=== PATIENT | female | born 1955 | race Caucasian/White ===

== ENCOUNTER 2018-05-18 13:53 | Outpatient (CLI) | payer BC ==
[~2018-05-18] VITALS: Ht 165.1 cm; Wt 78.9 kg
[~2018-05-18 13:53] MED LIST changes: -LEVO50TA PO; -MELO15TA14 PO; -MULT-35 PO; -SPIR50TA PO; -TRAM-42 PO; -VENL75CA PO
[2018-05-18] MEDS ORDERED: SPIR50TA PO (14:19)
[2018-05-18] MEDS ORDERED: MULT-35 PO (14:19)
[2018-05-18] MEDS ORDERED: LEVO50TA PO (14:19)
[2018-05-18] MEDS ORDERED: VENL75CA PO (14:19)
[2018-05-18] MEDS ORDERED: MELO15TA14 PO (14:19)
[2018-05-19] MEDS ORDERED: TRAM-42 PO (10:31)
== END 2018-05-18 14:24 ==
LOC: PREOP 13:53
PROVIDERS: ATTEND Surgery
DX: Z01.818 Encounter for other preprocedural examination (principal)

== ENCOUNTER → 2018-05-18 | Outpatient (CLI) | payer BC ==
[~2018-05-18] MED LIST: ACHD5005 PO; BIEST TD; CALC-656 PO; CLD600T PO; CYAN10007 PO; E400C PO; IBP600T1 PO; LEVO50TA PO; LVT.05T PO; MELO15TA14 PO; MELO7.5T PO; MULT-35 PO; MULT-608 PO; MULT1TAB63 PO; MV,C200T3 PO; NF-VITB12 PO; OXYC1TAB87 PO; SPIR50TA PO; SPRN25T PO; TRAM-42 PO; VENL75CA PO; VITA-198 PO; VNL75T PO
--- NOTE | 2018-05-18 10:08 | Diagnostic Imaging Report ---
PROCEDURE: US abdomen complete. TECHNIQUE: Multiple real-time grayscale images were obtained over the abdomen in various projections. INDICATION: Abdominal pain. The pancreas is unremarkable. The liver is normal in size. No discrete liver mass is identified. The main portal vein is patent and shows normal direction of flow. The gallbladder appears to be stone filled. This does limit evaluation of the gallbladder wall. No pericholecystic fluid or biliary ductal dilatation is identified. The spleen is normal in size. Aorta and IVC are unremarkable. The right and left kidneys are unremarkable. There is no ascites. IMPRESSION: Stone filled gallbladder, limiting evaluation of the gallbladder wall. No other significant abnormality is detected. Dictated by: Dictated on workstation # [id number]
== END ==
LOC: RAD 08:18
PROVIDERS: ATTEND Internal Medicine
DX: K80.20 Calculus of gallbladder without cholecystitis without obstruction (principal)
CPT/HCPCS: 76700

== ENCOUNTER 2018-05-19 06:56 | Day surgery (SDC) | payer BC ==
[~2018-05-19] VITALS: Ht 165.1 cm; Wt 78.9 kg
[~2018-05-19 06:56] MED LIST changes: +LEVO50TA PO; +MELO15TA14 PO; +MULT-35 PO; +SPIR50TA PO; +VENL75CA PO
[2018-05-19 07:15] VITALS: BP 133/86
[2018-05-19] MEDS ORDERED: ROCURONIUM 10 MG/ML 5 ML SYRINGE IV ONE (07:26)
[2018-05-19] MEDS ORDERED: DEXAMETHASONE 10 MG/ML (DECADRON) 1 ML VIAL ONE (07:26)
[2018-05-19] MEDS ORDERED: ONDANSETRON 4 MG/2 ML (SDV) Z0FRAN ONE (07:26)
[2018-05-19] MEDS ORDERED: fentaNYL INJECTION 100 MCG/2 ML AMP ONE (07:26)
[2018-05-19] MEDS ORDERED: MIDAZOLAM 2 MG/2 ML (VERSED) VIAL ONE (07:26)
[2018-05-19] MEDS ORDERED: proPOfol 200 MG/20 ML (DIPRIVAN) VIAL IV ONE (07:26)
[2018-05-19] MEDS ORDERED: LIDOCAINE PF 2% 5 ML (XYLOCAINE) VIAL ONE (07:26)
[2018-05-19] MEDS ORDERED: ONDANSETRON 4 MG/2 ML (SDV) Z0FRAN IV ONE (07:30)
[2018-05-19] MEDS ORDERED: FAMOTIDINE 20MG/2ML IV (PEPCID) IV ONE (07:30)
[2018-05-19] MEDS ORDERED: SCOPOLAMINE 1.5 MG (TRANSDERM-SCOP) PATCH TOP ONE (07:30)
[2018-05-19] MEDS ORDERED: SEVOFLURANE (ULTANE) 15 ML INHAL SOLN ONE ×3 (07:33→10:21)
[2018-05-19] MEDS ORDERED: BUP/EPI 0.5% 1:200,000 (SENSORCAINE) 30 ML VIAL ONE (07:33)
[2018-05-19] MEDS: LACTATED RINGERS 1,000 ML IV PRN ×2 (07:40→09:31)
[2018-05-19 07:46] LABS: BASOPHILS % (AUTO) 1 % (0-10); EOSINOPHILS # (AUTO) 0.3 10^3/uL (0.0-0.3); EOSINOPHILS % (AUTO) 7 % (0-10); HEMATOCRIT 37 % (35-52); HEMOGLOBIN 12.7 G/DL (11.5-16.0); LYMPHOCYTES # (AUTO) 1.5 X 10^3 (1.0-4.0); LYMPHOCYTES % (AUTO) 29 % (12-44); MEAN CORPUSCULAR HEMOGLOBIN 30 PG (25-34); MEAN CORPUSCULAR HGB CONC 35 G/DL (32-36); MEAN CORPUSCULAR VOLUME 88 FL (80-99); MEAN PLATELET VOLUME 9.8 FL (7.4-10.4); MONOCYTES # (AUTO) 0.5 X 10^3 (0.0-1.0); MONOCYTES % (AUTO) 9 % (0-12); NEUTROPHILS # (AUTO) 2.9 X 10^3 (1.8-7.8); NEUTROPHILS % (AUTO) 55 % (42-75); PLATELET COUNT 229 10^3/uL (130-400); RED BLOOD COUNT 4.18 10^6/uL (4.35-5.85); RED CELL DISTRIBUTION WIDTH 13.1 % (10.0-14.5); WHITE BLOOD COUNT 5.3 10^3/uL (4.3-11.0)
[2018-05-19] MEDS ORDERED: CATHETER FLUSH 10 ML SYR IV PRN (08:00)
[2018-05-19] MEDS ORDERED: ceFAZolin INJECTION 1,000 MG in NS (IVPB) 50 ML IV ONE (08:00)
--- NOTE | 2018-05-19 08:06 | Progress Note-Pre Operative ---
Pre-Operative Progress Note H&P Reviewed The H&P was reviewed, patient examined and no changes noted. Date Seen by Provider: May 19, 2018 Time Seen by Provider: 07:55 Date H&P Reviewed: May 19, 2018 Time H&P Reviewed: 08:00 Pre-Operative Diagnosis: Chronic calculous cholecystitis, screening colonoscopy BART OTERO APRN May 19, 2018 8:06 am
[2018-05-19] MEDS ORDERED: morphine INJ 10 MG/ML 1ML (SYR OR VIAL) IVP PRN (08:15)
[2018-05-19] MEDS ORDERED: ACETAMINOPHEN 325 MG TABLET PO PRN (08:15)
[2018-05-19] MEDS ORDERED: ONDANSETRON 4 MG/2 ML (SDV) Z0FRAN IVP PRN ×2 (08:15→10:30)
[2018-05-19] MEDS ORDERED: HYDROcodone/APAP 5 MG/325 MG (LORTAB) TAB PO ONE (08:15)
[2018-05-19] MEDS ORDERED: PHENYLEPHRINE 100 MCG/ML 10 ML (ANESTHESIA) SYR ONE (09:28)
[2018-05-19] MEDS ORDERED: GLYCOPYRROLATE 0.2 MG/ML (ROBINUL) 2 ML VIAL ONE (10:06)
[2018-05-19] MEDS ORDERED: NEOSTIGMINE 1 MG/ML 5 ML SYRINGE ONE (10:06)
--- NOTE | 2018-05-19 10:29 | Progress Note-Post Operative ---
Post-Operative Progess Note Surgeon (s)/Pulverizer Tender (s) Surgeon PHANI COTTON MD Pulverizer Tender: asuncion ledezma MUSEUM GUIDE Pre-Operative Diagnosis Chronic calculous cholecystitis, screening colonoscopy Post-Operative Diagnosis same, normal colon and rectum. Procedure & Operative Findings Date of Procedure 05/19/18 Procedure Performed/Findings laparoscopic cholecystectomy, colonoscopy Anesthesia Type GET Estimated Blood Loss Estimated blood loss (mL): minimal Specimens/Packing Specimens Removed gallbladder PHANI COTTON MD May 19, 2018 10:29 am
[2018-05-19] MEDS ORDERED: MEPERIDINE (DEMEROL) INJ 50 MG/ML IVP PRN (10:30)
[2018-05-19] MEDS ORDERED: HYDROmorphone 1 MG/ML (DILAUDID) 1 ML SYRINGE IV PRN (10:30)
[2018-05-19] MEDS ORDERED: TRAM-42 PO (10:31)
[2018-05-19] MEDS: morphine INJ 10 MG/ML 1ML (SYR OR VIAL) IVP PRN ×2 (10:32→10:47)
[2018-05-19 11:25] VITALS: BP 143/81
[2018-05-19 11:26] VITALS: BP 143/81
--- NOTE | 2018-05-19 11:26 | OPERATIVE REPORT ---
DATE OF SERVICE: 05/19/2018 ATTENDING PRIMARY CARE PHYSICIAN: Suzi Chisholm DO. PREOPERATIVE DIAGNOSES: Chronic calculous cholecystitis, screening colonoscopy. POSTOPERATIVE DIAGNOSES: Multiple gallstones. Mild inflammation. Normal colon and rectum. PROCEDURES: Laparoscopic cholecystectomy and colonoscopy. SURGEON: Phani Strange MD. ACCOUNT DEVELOPMENT MANAGER: Dejon Moore APRN. ANESTHESIA: General endotracheal. ESTIMATED BLOOD LOSS: Minimal. FINDINGS: Dilated gallbladder with multiple stones. Colon and rectum were normal. No polyps or any neoplasms identified. DISPOSITION: The patient tolerated the procedure well. INDICATIONS FOR PROCEDURE: The patient is a 62-year-old female, who presented with discomfort in the right upper abdominal quadrant associated with nausea. This was initially mild; however, increased in severity. This would also become much more frequent. An ultrasound was performed, which showed multiple gallstones. She was also in need of a screening colonoscopy. Her last one was greater than 10 years ago. She states that she is otherwise doing well and is having normal bowel movements and does not report any major issues with diarrhea nor constipation as well as no red blood per rectum nor any dark tarry stools. DESCRIPTION OF PROCEDURE: The patient was brought to the operating room and laid supine on the table. After adequate IV pain and sedating medications and general endotracheal intubation, the abdomen was prepped and draped in standard surgical fashion. A 0.5% Marcaine with epinephrine was then used to incise the overlying skin in the left upper abdominal quadrant and a small transverse skin incision was made using a 15-blade. A 0 silk suture was applied to the medial aspect of the incision for retraction and a Veress needle was inserted with a low opening pressure of 0 mmHg and the abdomen was then insufflated to 15 mmHg pressure. The Veress needle removed and a 5 mm Xcel trocar placed followed by a 5 mm 45-degree angle laparoscope visualizing the peritoneal cavity. A 4-quadrant abdominal exploration was performed. There was a dilated gallbladder with identifiable stones on the outside of the gallbladder. There was mild chronic inflammation as well. The liver, omentum, small bowel appeared normal. Under direct visualization, we then proceeded to place a supraumbilical 10 mm port after the skin and peritoneal lining were anesthetized using 0.5% Marcaine with epinephrine and a transverse skin incision made using a 15-blade. In a similar manner, a right upper abdominal quadrant 5 mm port was placed. The patient was then placed in reverse Trendelenburg position as well as planed right side up, left side down. The fundus of the gallbladder was then retracted anteriorly and superiorly. The hepatoduodenal ligament was then opened using a hook instrument as well as blunt dissection. The entire critical view of safety was identified including the triangle of Calot as well as the cystic duct and artery as the only two structures going into the gallbladder as well as the cystic plate behind the proximal gallbladder. A timeout was then taken and the cystic duct and artery were then clipped proximally, distally and cut with EndoShears. The gallbladder was then dissected off the liver bed using electrocautery on the hook instrument with visualization of good hemostasis as well as no leaking ducts of Luschka. The gallbladder was removed through the 10 mm port site using an EndoCatch bag. The 10 mm port site fascia and peritoneum were then closed under direct visualization using a Bowen-Tona device and a 0 Vicryl suture. The abdomen was desufflated and the remaining ports removed. All skin incisions were closed using 4-0 Monocryl running subcuticular sutures. Wounds were then cleaned with Dermabond. The patient tolerated this portion of the procedure well. We will start IV and oral pain medication as well as a clear liquid diet. Once she is tolerating clears, has good pain control with oral pain medications and ambulating well, we will discharge her home. Her only restriction is no heavy lifting or exertion for the next two weeks. Under the same anesthesia, we then proceeded with the colonoscopy portion of the procedure. The patient was placed in frog leg position and a digital rectal examination was performed, which did not reveal any significant hemorrhoids. Normal sphincter tone was felt and there were no palpable masses. The endoscope was then intubated to the anus and rectum gently insufflated. The endoscope was then advanced through the valves of Hoover of the rectum with no polyps or neoplasms identified. We then proceeded through the sigmoid colon where no diverticulosis identified. The endoscope was then advanced to the remainder of the descending, transverse and ascending colon and the cecum. These segments were normal. There were no polyps or any neoplasms identified throughout the colon or rectum. The endoscope was then slowly withdrawn while taking a second look and suctioning of residual air with no additional findings. The patient tolerated the procedure well. RECOMMENDATIONS: We recommend continued medical management with a high fiber diet with at least 25 grams of fiber per day as well as at least 64 ounces of water daily to promote soft stools on a daily basis. She does not need another colonoscopy for another 10 years. Job ID: [id number] DocumentID: [id number] Dictated Date: 05/19/2018 10:46:26 Pediatric Pathologist Date: 05/19/2018 11:24:50 Dictated By: PHANI STRANGE MD
[2018-05-19 11:55] VITALS: BP 156/85
--- NOTE | 2018-05-19 15:33 | Anesthesia-General Post-Op ---
General Patient Condition Mental Status/LOC: Same as Preop Cardiovascular: Satisfactory Nausea/Vomiting: Absent Respiratory: Satisfactory Pain: Controlled Complications: Absent Post Op Complications Complications None Follow Up Care/Instructions Patient Instructions None needed. Anesthesia/Patient Condition Patient Condition Patient was seen after the procedure and she was doing well, no complaints, stable vital signs, no apparent adverse anesthesia problems. WILDA SHEPARD DO May 19, 2018 15:33
== END 2018-05-19 12:40 | disposition home or self-care (01) ==
LOC: SDC 06:56
PROVIDERS: ATTEND Surgery
DX: K80.10 Calculus of gallbladder with chronic cholecystitis without obstruction (principal); Z12.11 Encounter for screening for malignant neoplasm of colon; K21.9 Gastro-esophageal reflux disease without esophagitis; Z77.22 Contact with and (suspected) exposure to environmental tobacco smoke (acute) (chronic)
CPT/HCPCS: 36415; 85025; 87081; 94664

== ENCOUNTER → 2020-07-09 | Outpatient (CLI) | payer BC ==
[~2020-07-09] MED LIST changes: +TRAM-42 PO
--- NOTE | 2020-07-09 11:17 | Diagnostic Imaging Report ---
EXAMINATION: MRI RT LOWER EXT JOINT W/O. TECHNIQUE: Multiplanar, multisequence MR imaging of the right knee was performed without contrast. COMPARISON: None available. INDICATION: Right knee pain. Fall from ladder. FINDINGS: Medial compartment: Diffuse full-thickness articular cartilage loss throughout the weightbearing aspect of the medial compartment. There is also some full-thickness articular cartilage loss in the posterior nonweightbearing aspect of the medial compartment. There are areas of subchondral bone marrow edema within the medial femoral condyle and medial tibial plateau. Macerated tearing throughout the medial meniscus with a probable complete radial tear in the posterior root. Lateral compartment: Multifocal full-thickness articular cartilage loss within the posterior weightbearing aspect of the lateral compartment. Complete radial tear at the posterior root insertion of the lateral meniscus is noted. Patellofemoral compartment: Partial thickness chondral loss throughout the patella and trochlea. Bones: Bone marrow edema in the posterior aspect of the medial and lateral tibial plateaus is most likely degenerative in nature; however, reactive hyperemia associated with nondisplaced fractures could give this appearance as well. No depression of the subchondral bone plates. Tendons and ligaments: The ACL is torn which is likely chronic in nature. The PCL has an abnormal thickened appearance which may be due to intrasubstance ganglion or partial thickness tearing. The medial and lateral collateral ligamentous complexes are normal. Extensor mechanism remains intact. Soft Tissues: Small knee joint effusion with multiple loose bodies in the posterior intercondylar region. The largest is a mineralized body measuring 1.4 x 1.0 cm. Medial plica is noted. Tiny Hathaway's cyst. IMPRESSION: 1. 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 2. Macerated tearing of the medial and lateral menisci appears degenerative in nature. 3. Complete tear of the ACL is likely chronic in nature. 4. Bone marrow edema in the posterior aspect of the medial and lateral tibial plateaus is likely reactive from degenerative change; however, bone contusion or nondisplaced fractures could be present. CT could be performed to better assess fine osseous detail or the possibility of fracture. 4. Moderate sized knee joint effusion with multiple loose bodies. Dictated by: Dictated on workstation # [id number]
== END ==
LOC: RAD 08:00
PROVIDERS: ATTEND Nurse Practitioner
DX: S83.221A Peripheral tear of medial meniscus, current injury, right knee, initial encounter (principal); S93.491A Sprain of other ligament of right ankle, initial encounter; S83.261A Peripheral tear of lateral meniscus, current injury, right knee, initial encounter; M17.11 Unilateral primary osteoarthritis, right knee; M94.261 Chondromalacia, right knee; M25.461 Effusion, right knee; W11.XXXA Fall on and from ladder, initial encounter
CPT/HCPCS: 73721

== ENCOUNTER 2020-11-20 05:40 | Outpatient (RCR) | payer MEDICARE, OTHER ==
[~2020-11-20] VITALS: Ht 167.7 cm; Wt 77.3 kg
[~2020-11-20 05:40] MED LIST changes: +ASCO500T17 PO; +BACI1TAB3 PO; +CALC-140 PO; +CHOL100048 PO; +MULT-1136 PO; +PANT40TA52 PO; +SUCR1TAB36 PO; +VITA200T7 PO; +ZINC50TA11 PO
== END 2020-11-20 14:00 | disposition home or self-care (01) ==
LOC: PREOP 05:40
PROVIDERS: ATTEND Specialist
DX: Z01.812 Encounter for preprocedural laboratory examination (principal); H25.9 Unspecified age-related cataract; Z20.822 Contact with and (suspected) exposure to COVID-19
CPT/HCPCS: 87635

== ENCOUNTER 2020-11-22 06:58 | Day surgery (SDC) | payer MEDICARE, OTHER ==
[~2020-11-22] VITALS: Ht 167.7 cm; Wt 77.3 kg
[~2020-11-22 06:58] MED LIST changes: +MIDAZOLAM 2 MG/2 ML (VERSED) VIAL ONE
[2020-11-22 07:05] VITALS: BP 136/92
[2020-11-22] MEDS ORDERED: LIDOCAINE PF 1% 2 ML VIAL IR PRN (07:15)
[2020-11-22] MEDS ORDERED: POVIDONE (BETADINE) OPHTH SOLN 5% 30 ML OP ONE (07:15)
[2020-11-22] MEDS ORDERED: TIMOLOL MALEATE 0.5% 5 ML (TIMOPTIC) BTL OU PRN (07:15)
[2020-11-22] MEDS ORDERED: MOXIFLOXACIN OPHTH SOLN 5 MG/ML 0.3 ML SYRINGE OP ONE (07:15)
[2020-11-22] MEDS: TETRACAINE 0.5% OPHTH SOLN 4 ML BTL (SINGLE DOSE ONLY) OU PRN ×4 (07:19→07:36)
[2020-11-22] MEDS: PHENYLEPHRINE 10% OPHTH (NEO-SYN) 5 ML BTL OU SCH ×3 (07:25→07:36)
[2020-11-22] MEDS: TROPICAMIDE 1% OPH SOLN (MYDRIACYL) 15 ML BTL OP SCH ×3 (07:25→07:36)
--- NOTE | 2020-11-22 08:09 | Ophthalmologist Pre-Op Note ---
Pre-Operative Progress Note H&P Reviewed The H&P was reviewed, patient examined and no changes noted. Date H&P Reviewed: Nov 22, 2020 Time H&P Reviewed: 08:08 Pre-Op Dx Cataract, Right Eye HIGINIO LEE MD Nov 22, 2020 08:09
[2020-11-22] MEDS ORDERED: acetaZOLAMIDE ER 500 MG CAP (DIAMOX SEQUELS) PO ONE (08:30)
--- NOTE | 2020-11-22 08:31 | Ophthalmology Operative Report ---
Cataract removal/placement IOL PREOPERATIVE DIAGNOSIS: Cataract Right Eye POSTOPERATIVE DIAGNOSIS: Cataract Right Eye PROCEDURE: Cataract removal and placement of posterior chamber implant, right eye SURGEON: Liam Lee ANESTHESIA: Topical with sedation COMPLICATIONS: None ESTIMATED BLOOD LOSS: Minimal DESCRIPTION OF PROCEDURE: After proper informed consent was obtained, the patient, a 65 female, was taken to the Operating Room and the right eye was anesthetized with tetracaine. The right eye was then prepped and draped in the usual manner. A wire lid speculum was placed. A paracentesis was made at the left hand position. Preservative free lidocaine was injected into the anterior chamber followed by viscoelastic. A clear corneal incision was made in the temporal position. A capsulorrhexis was preformed and the central nuclear and cortical material were removed. The posterior capsule was polished and Saurav 15.0 AU00T0 IOL was placed into the capsular bag. The residual viscoelastic was aspirated and balanced saline solution was injected into the anterior chamber. Moxifloxacin was injected into the anterior chamber. The wound was checked and found to be water tight. The patient tolerated the procedure well without complications. LIAM LEE MD Nov 22, 2020 08:30
[2020-11-22 08:35] VITALS: BP 138/87
--- NOTE | 2020-11-22 11:04 | Anesthesia-General Post-Op ---
MAC Patient Condition Mental Status/LOC: Same as Preop Cardiovascular: Satisfactory Nausea/Vomiting: Absent Respiratory: Satisfactory Pain: Controlled Complications: Absent Post Op Complications Complications None Follow Up Care/Instructions Patient Instructions None needed. Anesthesiology Discharge Order Discharge Order Patient is doing well, no complaints, stable vital signs, no apparent adverse anesthesia problems. No complications reported per nursing. SNEHA CANNON CRNA Nov 22, 2020 11:04
== END 2020-11-22 08:35 | disposition home or self-care (01) ==
LOC: SDC 06:58
PROVIDERS: ATTEND Specialist
DX: H25.11 Age-related nuclear cataract, right eye (principal); M19.90 Unspecified osteoarthritis, unspecified site; Z90.710 Acquired absence of both cervix and uterus; Z79.899 Other long term (current) drug therapy
CPT/HCPCS: 66984; V2632

== ENCOUNTER 2020-12-04 05:39 | Outpatient (RCR) | payer MEDICARE, OTHER ==
[~2020-12-04 05:39] MED LIST changes: -MIDAZOLAM 2 MG/2 ML (VERSED) VIAL ONE
== END 2020-12-04 09:39 | disposition home or self-care (01) ==
LOC: PREOP 05:39
PROVIDERS: ATTEND Specialist
DX: Z01.812 Encounter for preprocedural laboratory examination (principal); Z20.822 Contact with and (suspected) exposure to COVID-19
CPT/HCPCS: 87635

== ENCOUNTER 2020-12-06 06:34 | Day surgery (SDC) | payer MEDICARE, OTHER ==
[~2020-12-06] VITALS: Ht 167.7 cm; Wt 77.3 kg
[2020-12-06 06:40] VITALS: BP 131/89
[2020-12-06] MEDS ORDERED: MOXIFLOXACIN OPHTH SOLN 5 MG/ML 0.3 ML SYRINGE OP ONE (06:45)
[2020-12-06] MEDS: TETRACAINE 0.5% OPHTH SOLN 4 ML BTL (SINGLE DOSE ONLY) OU PRN ×4 (06:45→07:06)
[2020-12-06] MEDS ORDERED: TIMOLOL MALEATE 0.5% 5 ML (TIMOPTIC) BTL OU PRN (06:45)
[2020-12-06] MEDS ORDERED: LIDOCAINE PF 1% 2 ML VIAL IR PRN (06:45)
[2020-12-06] MEDS ORDERED: POVIDONE (BETADINE) OPHTH SOLN 5% 30 ML OP ONE (06:45)
[2020-12-06] MEDS: TROPICAMIDE 1% OPH SOLN (MYDRIACYL) 15 ML BTL OP SCH ×3 (06:55→07:06)
[2020-12-06] MEDS: PHENYLEPHRINE 10% OPHTH (NEO-SYN) 5 ML BTL OU SCH ×3 (06:56→07:06)
[2020-12-06] MEDS ORDERED: MIDAZOLAM 2 MG/2 ML (VERSED) VIAL ONE (07:01)
--- NOTE | 2020-12-06 07:49 | Ophthalmologist Pre-Op Note ---
Pre-Operative Progress Note H&P Reviewed The H&P was reviewed, patient examined and no changes noted. Date H&P Reviewed: Dec 06, 2020 Time H&P Reviewed: 07:49 Pre-Op Dx Cataract, Left Eye HIGINIO LEE MD Dec 06, 2020 07:49
[2020-12-06] MEDS ORDERED: acetaZOLAMIDE ER 500 MG CAP (DIAMOX SEQUELS) PO ONE (08:00)
--- NOTE | 2020-12-06 08:09 | Ophthalmology Operative Report ---
Cataract removal/placement IOL PREOPERATIVE DIAGNOSIS: Cataract Left Eye POSTOPERATIVE DIAGNOSIS: Cataract Left Eye PROCEDURE: Cataract removal and placement of posterior chamber implant, left eye SURGEON: Liam Lee ANESTHESIA: Topical with sedation COMPLICATIONS: None ESTIMATED BLOOD LOSS: Minimal DESCRIPTION OF PROCEDURE: After proper informed consent was obtained, the patient, a 65 female, was taken to the Operating Room and the left eye was anesthetized with tetracaine. The left eye was then prepped and draped in the usual manner. A wire lid speculum was placed. A paracentesis was made at the left hand position. Preservative free lidocaine was injected into the anterior chamber followed by viscoelastic. A clear corneal incision was made in the temporal position. A capsulorrhexis was preformed and the central nuclear and cortical material were removed. The posterior capsule was polished and an Saurav 16.0 AU00T0 was placed into the capsular bag. The residual viscoelastic was aspirated and balanced saline solution was injected into the anterior chamber. Moxifloxacin was injected into the anterior chamber. The wound was checked and found to be water tight. The patient tolerated the procedure well without complications. LIAM LEE MD Dec 06, 2020 08:09
[2020-12-06 08:15] VITALS: BP 133/81
--- NOTE | 2020-12-06 15:06 | Anesthesia-General Post-Op ---
MAC Patient Condition Mental Status/LOC: Same as Preop Cardiovascular: Satisfactory Nausea/Vomiting: Absent Respiratory: Satisfactory Pain: Controlled Complications: Absent Post Op Complications Complications None Follow Up Care/Instructions Patient Instructions None needed. Anesthesiology Discharge Order Discharge Order Patient was seen this morning after the procedure and she was doing well, no complaints, stable vital signs, no apparent adverse anesthesia problems. WILDA SHEPARD DO Dec 06, 2020 15:06
== END 2020-12-06 08:15 ==
LOC: SDC 06:34
PROVIDERS: ATTEND Specialist
DX: H25.12 Age-related nuclear cataract, left eye (principal); M19.90 Unspecified osteoarthritis, unspecified site; Z79.899 Other long term (current) drug therapy; Z90.710 Acquired absence of both cervix and uterus
CPT/HCPCS: 66984; V2632

== ENCOUNTER → 2020-12-24 | Outpatient (CLI) | payer MEDICARE, OTHER ==
--- NOTE | 2020-12-24 12:18 | Diagnostic Imaging Report ---
Indication: Routine screening. Comparison is made with prior mammogram 09/08/2016 and 08/15/2015. 2-D and 3-D bilateral screening mammography was performed with CAD. Scattered fibroglandular densities are identified bilaterally. The parenchymal pattern is stable. No mass or malignant appearing microcalcifications are seen. Axillae are unremarkable. IMPRESSION: BI-RADS Category 1 No mammographic features suspicious for malignancy are identified. ACR BI-RADS Category 1: Negative. Result letter will be mailed to the patient. Note: At least 10% of breast cancer is not imaged by mammography. Dictated by: Dictated on workstation # [id number]
== END ==
LOC: RAD 07:30
PROVIDERS: ATTEND Obstetrics & Gynecology
DX: Z12.31 Encounter for screening mammogram for malignant neoplasm of breast (principal)
CPT/HCPCS: 77063; 77067